=== PATIENT | male | born 1980 | race Caucasian/White ===

== ENCOUNTER → 2023-12-14 16:32 | Outpatient (REF) | payer OTHER, SELFPAY | LOC: HWRAD 16:32 | PROVIDERS: ATTENDING PHYSICIAN Nurse Practitioner Family | DX: R22.33 Localized swelling, mass and lump, upper limb, bilateral (principal) | CPT/HCPCS: 73130 ==

== ENCOUNTER 2025-03-25 15:28 | Emergency (ER) | payer OTHER, SELFPAY ==
[2025-03-25 15:31] VITALS: BP 147/81
[2025-03-25 15:57] LABS: Hematocrit 42.2 % (39.0-52.0); Hemoglobin 14.8 g/dL (13.0-18.0); Mean Corp Hgb Conc. 35.1 g/dL (33.0-37.0); Mean Corpuscular Volume 87.4 fL (80.0-94.0); Nucleated Red Blood Cells % 0 % (-); Platelet Count 219 10^3/uL (130-400); Red Cell Dist. Width 12.2 % (11.5-14.5)
[2025-03-25 16:14] LABS: ALT (SGPT) 27 U/L (0-50); AST (SGOT) 28 U/L (17-59); Albumin 4.9 g/dl (3.5-5.0); Alkaline Phosphatase 66 U/L (38-126); Blood Urea Nitrogen 20 mg/dl (9-20); Calcium 9.7 mg/dl (8.4-10.2); Carbon Dioxide 28 mmol/L (22-30); Chloride 100 mmol/L (98-107); Glucose 140 mg/dl (70-99); Potassium 4.9 mmol/L (3.5-5.1); Sodium 137 mmol/L (135-145); Total Protein 7.6 g/dl (6.3-8.2); eGFR > 60.00
--- NOTE | 2025-03-25 19:20 | ED.GENMED ---
History of Present Illness
General
Chief Complaint: Dizziness
Source: patient
Time Seen by Provider: 03/25/25 19:15
History of Present Illness
History of Present Illness:
44-year-old male with no significant past medical history presents to the ER for a few episodes of lightheadedness and brain fog episodes that occurred around lunchtime stating that he had just completed doing push-ups and was going to eat his lunch
when he had the first episode/sensation. Symptoms resolved after a minute or so, proceeded to begin again while kids were returning from recess again lasting only for approximately 1 minute. Went to urgent care and after they told him he needed to
come to the emergency department for further evaluation started to experience the symptoms again and then once again shortly after labs were drawn while in the ER. Patient states that since his labs were drawn and time of my evaluation he has not
had any further symptoms. He otherwise feels as if he is in his usual state of health and denies any other symptoms.
Past History
Past History
ED Past Medical History: None
ED Past Surgical History: Tonsilectomy
Social History
Tobacco: Non-smoker
Alcohol: Occasional
Drug: None
Personal:
Living: with family
Employment: Employed (Teacher)
Review of Systems
Review of Systems
All Other Systems: ROS reviewed and negative except as documented in HPI and ROS
Phy Exam
Physical Exam
Physical Exam:
GENERAL: Alert , in no apparent distress
HEAD: Normocephalic atraumatic
EYE: clear conjunctiva
NECK: Supple
ENT: o/p clr, mmm.
CARDIAC: Regular rate and rhythm .
LUNGS: Clear breath sounds bilaterally, no acute respiratory distress, no wheezes/rales/rhonchi
ABDOMEN: Soft, without focal tenderness, no r/g, no cvat
NEUROLOGICAL: Alert and oriented, no focal neuro deficits
SKIN: Warm and dry, skin intact.
MUSCULOSKELETAL: No edema, well perfused.
PSYCH: Normal and appropriate interaction.
Scores
Heart Failure Risk
Heart Failure Risk Score: Not Applicable
Heart Score for Chest Pain Patients
STEMI patient?: Not applicable
Withdrawal Assessment of Alcohol
Withdrawal Assessment Completed?: Not applicable
Course
Orders/Labs/Results
Orders:
Orders
03/25/25 15:33
Electrocardiogram (*1) Urgent
Reason for Study: Vertigo / Dizzy
EKG- Treatment ONCE
03/25/25 15:42
Complete Blood Count/With Diff Urgent
Comprehensive Metabolic Panel Urgent
Abnormal Lab Results
03/25/25
15:42
Glucose 140 H mg/dl
(70-99)
03/25/25 15:42
03/25/25 15:42
Vital Signs
Initial and Last Documented VS:
Initial Vital Signs
Temp Pulse Resp BP Pulse Ox
98.1 F 59 16 147/81 97
03/25/25 15:31 03/25/25 15:31 03/25/25 15:31 03/25/25 15:31 03/25/25 15:31
Last Documented Vital Signs
Temp Pulse Resp BP Pulse Ox
98.1 F 68 18 139/92 98
03/25/25 15:31 03/25/25 19:28 03/25/25 19:28 03/25/25 19:28 03/25/25 19:28
MDM/Problems Addressed
Differential Diagnosis Includes:
Vagal Event
Orthostasis
Cardiac Arrhythmia
Electrolyte imbalance
Dehydration
Hypertension
MDM/Problems Addressed:
44-year-old male presenting to the ER at the request of urgent care for evaluation of 2 separate episodes of lightheadedness that occurred shortly after lunchtime. Patient asymptomatic now. Noted to have slightly elevated blood pressure past his
baseline. Labs initiated on arrival do show a slightly elevated glucose but are otherwise unremarkable. EKG is without any arrhythmia or ectopy. Given patient continues to feel well and without any significant findings on exam or on workup I do
think it is reasonable for patient to be discharged home. We did discuss possibility that if symptoms persist or return he may need to follow-up with cardiology for further evaluation/Holter monitor. Otherwise stable for discharge home and aware
of return precautions to the ER.
*Pulse Oximetry
SaO2: 97
Oxygen Mode of Delivery: Room air
Patient hypoxic: no
*EKG
Heart Rate: 64
Rate: normal
Rhythm: sinus arrhythmia
[place]: left axis deviation
Ischemia: no ischemia
*Critical Care Note
Total Time (30-74mins, 75-104mins- exclusive of procedures): Not Applicable
ED Attending Note
-
Portions of this chart may have been created with voice recognition software.� Occasional wrong word or��sound alike� substitutions may have occurred due to the inherent limitations of voice recognition software.
Discharge Plan
Departure
Patient Disposition: Home (Routine Discharge)
Date of Disposition: 03/25/25
Time of Disposition: 19:20
Patient with high blood pressure during this ER visit?: Yes
Discharge Problem:
Lightheadedness
Instructions: Dizziness, Nonvertigo, (DC)
Interventions
Interventions:
*Risk Screen - Suicide Last Done: 03/25/25 15:32
*Neglect/Abuse Screening Last Done: 03/25/25 15:32
[facility] Risk Assessment Tool Last Done: 03/25/25 19:14
*Nursing Disposition Last Done: 03/25/25 19:30
ED- Neurological Assessment Last Done: 03/25/25 19:24
ED- Cardiac Assessment Last Done: 03/25/25 19:24
Discharge Date and Time
Discharge Date/Time: 03/25/25 19:30
Print Language: TELUGU
[2025-03-25 19:28] VITALS: BP 139/92
== END 2025-03-25 19:30 | disposition home or self-care (01) ==
LOC: EMR 15:28
PROVIDERS: Emergency Medicine; EMERGENCY PHYSICIAN Student in an Organized Health Care Education/Training Program; FAMILY PHYSICIAN Internal Medicine
DX: R42 Dizziness and giddiness (principal); R03.0 Elevated blood-pressure reading, without diagnosis of hypertension
CPT/HCPCS: 99284; 80053; 85025; 93005